=== PATIENT | male | born 1955 | race Caucasian/White ===

== ENCOUNTER 2019-06-10 04:35 | Emergency (ER) | payer MEDICARE, OTHER ==
[2019-06-10] MEDS ORDERED: Sodium Chloride 0.9% 1000 ML 1,000 ML IV STA ×2 (05:04→06:13)
--- NOTE | 2019-06-10 05:12 | ERPHSYRPT ---
- History of Present Illness Time Seen by Provider: 06/10/19 05:00 Source: patient Exam Limitations: no limitations Patient Subjective Stated Complaint: pt states he thinks he is dehydrated. states he was working outside yesterday. tonight he has shooting pains in the back of his neck radiating up to his head and generalized body aches. states he had fever and chills earlier in the night Triage Nursing Assessment: pt alert and oriented. asnwers questions approp. pt ambulatory iwht steady gait noted. respirations nonlabored with lungs cta. skin pink warm and dry. Physician History: Myalgias generalized with back in the back of his neck after breaking up concrete on 06/07/2019 and cutting down trees on 06/08/2019. Symptoms began at 11 :00 on 06/09/2019. He tried hydrating himself, but states the body aches have become too much and he has not really urinated since yesterday. He had some fever and chills in the evening of 06/09/2019. Timing/Duration: yesterday Severity: moderate Modifying Factors: Improves With: movement (worsens it), rest (no improvement) Associated Symptoms: chills, fever, No nausea, No vomiting, No abdominal pain, No shortness of breath, No heartburn, No diaphoresis, No cough, No chest pain, No headaches, No loss of appetite, No malaise, No rash, No syncope, No seizure, No weakness Allergies/Adverse Reactions: ezetimibe [From Vytorin] Adverse Reaction (Verified 06/10/19 04:51) Joint Aches simvastatin [From Vytorin] Adverse Reaction (Verified 06/10/19 04:51) Joint Aches Home Medications: Aspirin [Aspirin EC] 81 mg PO DAILY 05/26/14 [History] Clopidogrel Bisulfate 75 mg [PLAVIX 75 MG Tablet] 1 tab PO DAILY 05/26/14 [History] Lisinopril [Zestril] 40 mg PO DAILY 05/26/14 [History] [place]-3 Fatty Acids/Fish Oil [Fish Oil 1,000 mg Capsule] 2,000 mg PO DAILY 05/26/14 [History] Rosuvastatin Calcium [Crestor] 40 mg PO DAILY 05/26/14 [History] Gabapentin 300 mg PO BID 06/10/19 [History] PANTOPRAZOLE 40 mg Tablet [Protonix 40MG Tablet] 40 mg PO QAM 06/10/19 [ History] Hx Tetanus, Diphtheria Vaccination/Date Given: No Hx Influenza Vaccination/Date Given: No Hx Pneumococcal Vaccination/Date Given: No Immunizations Up to Date: No - Review of Systems Constitutional: Fever, Chills, No Fatigue Eyes: No Symptoms, No Eye Redness Ears, Nose, & Throat: No Symptoms, No Mouth Pain, No Hoarse, No Painful Swallowing Respiratory: No Cough, No Dyspnea Cardiac: No Chest Pain, No Edema, No Syncope Abdominal/Gastrointestinal: No Abdominal Pain, No Nausea, No Vomiting, No Diarrhea, No Hematemesis, No Hematochezia Genitourinary Symptoms: No Dysuria, No Hematuria, No Flank Pain Musculoskeletal: Back Pain, Neck Pain, Myalgias, No Injury Skin: No Rash Neurological: No Dizziness, No Focal Weakness, No Sensory Changes Psychological: No Symptoms Endocrine: No Symptoms, No Polydipsia, No Excessive Sweating Hematologic/Lymphatic: No Easy Bleeding, No Easy Bruising All Other Systems: Reviewed and Negative - Past Medical History Pertinent Past Medical History: Yes Neurological History: No Pertinent History ENT History: No Pertinent History Cardiac History: Arrhythmia, Coronary Artery Disease, High Cholesterol, Hypertension Respiratory History: No Pertinent History Endocrine Medical History: No Pertinent History Musculoskeletal History: Arthritis GI Medical History: GERD, Polyps History: Other Psycho-Social History: No Pertinent History Male Reproductive Disorders: No Pertinent History Other Medical History: 1 kidney stone. 4 heart stents - Past Surgical History Past Surgical History: Yes Neuro Surgical History: No Pertinent History Cardiac: Cardiac Catheterization, Cardiac Stent Respiratory: No Pertinent History Gastrointestinal: No Pertinent History Genitourinary: No Pertinent History Musculoskeletal: Orthopedic Surgery Male Surgical History: No Pertinent History Other Surgical History: left shoulder surgery - Social History Smoking Status: Never smoker Exposure to second hand smoke: No Drug Use: none Patient Lives Alone: No - Nursing Vital Signs Nursing Vital Signs: Initial Vital Signs Temperature 99.8 F 06/10/19 04:41 Pulse Rate 80 06/10/19 04:41 Respiratory Rate 18 06/10/19 04:41 Blood Pressure 126/72 06/10/19 04:41 O2 Sat by Pulse Oximetry 96 06/10/19 04:41 Pain Scale Pain Intensity 8 - Physical Exam General Appearance: no apparent distress, alert Eye Exam: PERRL/EOMI, eyes nml inspection, No scleral icterus Ears, Nose, Throat Exam: normal ENT inspection, TMs normal, pharynx normal, moist mucous membranes Neck Exam: normal inspection, non-tender, supple, full range of motion Respiratory Exam: normal breath sounds, lungs clear, No respiratory distress Cardiovascular Exam: regular rate/rhythm, normal heart sounds, normal peripheral pulses Gastrointestinal/Abdomen Exam: soft, normal bowel sounds, No tenderness, No mass Back Exam: normal inspection, normal range of motion, No CVA tenderness, No vertebral tenderness, No decreased range of motion, No muscle spasm Extremity Exam: normal inspection, normal range of motion, pelvis stable Neurologic Exam: alert, oriented x 3, cooperative, normal mood/affect, nml cerebellar function, nml station & gait, sensation nml, No motor deficits Skin Exam: normal color, warm, dry, No rash Lymphatic Exam: No adenopathy SpO2 Interpretation: normal SpO2: 96 O2 Delivery: Room Air - Course EKG Interpreted by Me: RATE (75), Sinus Rhythm, NORMAL AXIS, NORMAL INTERVALS, NORMAL QRS, NORMAL ST-T Ordered Tests: Active Orders 24 hr Category Date Time Status Community Marketing Coordinator STAT Care 06/10/19 05:04 Active EKG-ER Only STAT Care 06/10/19 05:04 Active IV Insertion STAT Care 06/10/19 05:04 Active Re-Check Vital Signs STAT Care 06/10/19 05:04 Active AMYLASE Stat Lab 06/10/19 05:19 Completed CBC W DIFF Stat Lab 06/10/19 05:19 Completed CK-Creatinine Phosphokinase Stat Lab 06/10/19 05:19 Completed CMP Stat Lab 06/10/19 05:19 Completed CULTURE,URINE Stat Lab 06/10/19 06:06 Received LIPASE Stat Lab 06/10/19 05:19 Completed Lactic Acid Urgent Lab 06/10/19 05:14 Completed MAGNESIUM Stat Lab 06/10/19 05:19 Completed TROPONIN Q3H Lab 06/10/19 05:19 Completed TROPONIN Q3H Lab 06/10/19 08:15 Ordered TROPONIN Q3H Lab 06/10/19 11:15 Ordered TROPONIN Q3H Lab 06/10/19 14:15 Ordered TROPONIN Q3H Lab 06/10/19 17:15 Ordered UA W/RFX UR CULTURE Stat Lab 06/10/19 06:06 Completed VENOUS BLOOD GAS Urgent Lab 06/10/19 05:14 Completed Medication Summary Generic Name Dose Route Start Last Admin Trade Name Shannan PRN Reason Stop Dose Admin Sodium Chloride 1,000 mls @ 999 mls/hr 06/10/19 06:13 06/10/19 06:16 Sodium Chloride 0.9% 1000 Ml IV 06/10/19 07:13 999 mls/hr .Q1H1M STA Administration Magnesium Oxide 400 mg 06/10/19 10:00 06/10/19 06:09 Mag-Ox 400 PO 07/10/19 09:59 400 mg DAILY NIKKI Administration Discontinued Medications Generic Name Dose Route Start Last Admin Trade Name Shannan PRN Reason Stop Dose Admin Sodium Chloride 1,000 mls @ 999 mls/hr 06/10/19 05:04 06/10/19 06:17 Sodium Chloride 0.9% 1000 Ml IV 06/10/19 06:04 Infused .Q1H1M STA Infusion Sodium Chloride Confirm 06/10/19 05:17 Sodium Chloride 0.9% 1000 Ml Administered 06/10/19 05:18 Dose 1,000 mls @ ud .ROUTE .STK-MED ONE Sodium Chloride Confirm 06/10/19 06:12 Sodium Chloride 0.9% 1000 Ml Administered 06/10/19 06:13 Dose 1,000 mls @ ud .ROUTE .STK-MED ONE Ceftriaxone Sodium/Dextrose 1 g in 50 mls @ 100 mls/hr 06/10/19 06:23 06:39 Rocephin 1 Gm-D5w 50 Ml Bag IV 06/10/19 06:52 100 ml/hr STAT STA 100 mls/hr Administration Ceftriaxone Sodium/Dextrose Confirm 06/10/19 06:35 Rocephin 1 Gm-D5w 50 Ml Bag Administered 06/10/19 06:36 Dose 1 g in 50 mls @ ud IV .STK-MED ONE Lab/Rad Data: Laboratory Result Diagrams 06/10/19 05:19 06/10/19 05:19 Laboratory Results 06/10/19 06/10/19 06/10/19 Range/Units 06:06 05:19 05:19 WBC (4.0-10.5) K/mm3 RBC (4.1-5.6) M/mm3 Hgb (12.5-18.0) gm/dl Hct (42-50) % MCV (78-100) fl MCH (26-32) pg MCHC (32-36) g/dl RDW (11.5-14.0) % Plt Count (150-450) K/mm3 MPV (6-9.5) fl Gran % (36.0-66.0) % Eos # (Auto) (0-0.5) Absolute Lymphs (auto) (1.0-4.6) Absolute Monos (auto) (0.0-1.3) Lymphocytes % (24.0-44.0) % Monocytes % (0.0-12.0) % Eosinophils % (0.00-5.0) % Basophils % (0.0-0.4) % Absolute Granulocytes (1.4-6.9) Basophils # (0-0.4) pO2/FiO2 Ratio % VBG pH (7.32-7.42) VBG pCO2 at Pat Temp (42-55) mm/Hg VBG pO2 at Pat Temp (25-40) mm/Hg VBG HCO3 (22-28) meq/L VBG O2 Sat ([place]) (95-100) VBG Base Excess (-2.0-2.0) VBG Hemoglobin VBG Carboxyhemoglobin (0.0-6.9) % T HGB POC Potassium (3.5-5.1) Sodium 138 (137-145) mmol/L Potassium 4.1 (3.5-5.1) mmol/L Chloride 104 (98-107) mmol/L Carbon Dioxide 26 (22-30) mmol/L Anion Gap 11.9 (5-15) MEQ/L BUN 11 (9-20) mg/dL Creatinine 0.79 (0.66-1.25) mg/dL Estimated GFR > 60.0 ML/MIN Glucose 181 H (74-106) mg/dL Lactic Acid (0.4-2.0) Calcium 9.7 (8.4-10.2) mg/dL Magnesium 1.5 L (1.6-2.3) mg/dL Total Bilirubin 2.60 H (0.2-1.3) mg/dL AST 23 (17-59) U/L ALT 27 (0-50) U/L Alkaline Phosphatase 62 (38-126) U/L Creatine Kinase 128 (55-170) U/L Troponin I < 0.012 (0.000-0.034) ng/mL Serum Total Protein 6.8 (6.3-8.2) g/dL Albumin 4.2 (3.5-5.0) g/dL Amylase 41 (30-110) U/L Lipase 28 (23-300) U/L Urine Color YELLOW (YELLOW) Urine Appearance SLIGHTLY CLOUDY (CLEAR) Urine pH 5.0 (5-6) Ur Specific [place] 1.020 (1.005-1.025) Urine Protein NEGATIVE (Negative) Urine Ketones NEGATIVE (NEGATIVE) Urine Blood MODERATE (0-5) [place] Urine Nitrite NEGATIVE (NEGATIVE) Urine Bilirubin NEGATIVE (NEGATIVE) Urine Urobilinogen NEGATIVE (0-1) mg/dL Ur Leukocyte Esterase LARGE (NEGATIVE) Urine WBC (Auto) >100 (0-5) /HPF Urine RBC (Auto) 6-10 (0-2) /HPF U Epithel Cells (Auto) NONE (FEW) /HPF Urine Bacteria (Auto) MODERATE (NEGATIVE) /HPF Urine Mucus (Auto) SLIGHT (NEGATIVE) /HPF Urine Culture Reflexed YES (NO) Urine Glucose 50 (NEGATIVE) mg/dL 06/10/19 06/10/19 Range/Units 05:19 05:14 WBC 8.7 (4.0-10.5) K/mm3 RBC 4.00 L (4.1-5.6) M/mm3 Hgb 12.2 L (12.5-18.0) gm/dl Hct 35.9 L (42-50) % MCV 89.8 (78-100) fl MCH 30.5 (26-32) pg MCHC 34.0 (32-36) g/dl RDW 12.9 (11.5-14.0) % Plt Count 164 (150-450) K/mm3 MPV 10.3 H (6-9.5) fl Gran % 77.9 H (36.0-66.0) % Eos # (Auto) 0.06 (0-0.5) Absolute Lymphs (auto) 1.17 (1.0-4.6) Absolute Monos (auto) 0.68 (0.0-1.3) Lymphocytes % 13.4 L (24.0-44.0) % Monocytes % 7.8 (0.0-12.0) % Eosinophils % 0.7 (0.00-5.0) % Basophils % 0.2 (0.0-0.4) % Absolute Granulocytes 6.77 (1.4-6.9) Basophils # 0.02 (0-0.4) pO2/FiO2 Ratio 21.0 % VBG pH 7.43 H (7.32-7.42) VBG pCO2 at Pat Temp 39 L (42-55) mm/Hg VBG pO2 at Pat Temp 48 H (25-40) mm/Hg VBG HCO3 25.9 (22-28) meq/L VBG O2 Sat ([place]) 89.8 L (95-100) VBG Base Excess 1.5 (-2.0-2.0) VBG Hemoglobin 12.3 VBG Carboxyhemoglobin 2.6 (0.0-6.9) % T HGB POC Potassium 3.9 (3.5-5.1) Sodium (137-145) mmol/L Potassium (3.5-5.1) mmol/L Chloride (98-107) mmol/L Carbon Dioxide (22-30) mmol/L Anion Gap (5-15) MEQ/L BUN (9-20) mg/dL Creatinine (0.66-1.25) mg/dL Estimated GFR ML/MIN Glucose (74-106) mg/dL Lactic Acid 1.4 (0.4-2.0) Calcium (8.4-10.2) mg/dL Magnesium (1.6-2.3) mg/dL Total Bilirubin (0.2-1.3) mg/dL AST (17-59) U/L ALT (0-50) U/L Alkaline Phosphatase (38-126) U/L Creatine Kinase (55-170) U/L Troponin I (0.000-0.034) ng/mL Serum Total Protein (6.3-8.2) g/dL Albumin (3.5-5.0) g/dL Amylase (30-110) U/L Lipase (23-300) U/L Urine Color (YELLOW) Urine Appearance (CLEAR) Urine pH (5-6) Ur Specific [place] (1.005-1.025) Urine Protein (Negative) Urine Ketones (NEGATIVE) Urine Blood (0-5) [place] Urine Nitrite (NEGATIVE) Urine Bilirubin (NEGATIVE) Urine Urobilinogen (0-1) mg/dL Ur Leukocyte Esterase (NEGATIVE) Urine WBC (Auto) (0-5) /HPF Urine RBC (Auto) (0-2) /HPF U Epithel Cells (Auto) (FEW) /HPF Urine Bacteria (Auto) (NEGATIVE) /HPF Urine Mucus (Auto) (NEGATIVE) /HPF Urine Culture Reflexed (NO) Urine Glucose (NEGATIVE) mg/dL - Progress Progress: improved Progress Note: 06/10/19 06:13 patient subjectively feels much better. He states that he has been told the past he has an elevated bilirubin. Patient would like one more liter of fluids. 06/10/19 06:59 Patient feeling better. No further fevers, chills, or pain at this time. Counseled pt/family regarding: lab results, diagnosis, need for follow-up - Departure Departure Disposition: Home Clinical Impression: Fever and chills, UTI (urinary tract infection), bacterial, Hypomagnesemia, Serum total bilirubin elevated Condition: Good Critical Care Time: No Referrals: MAR SHAW [Primary Care Provider] - Follow Up with PCP/3 days Instructions: Dehydration, Adult (DC), Urinary Tract Infection, Adult (DC), Fever, Adult (DC), Low Magnesium Level (DC) Prescriptions: Smz/Tmp Ds Tablet [Bactrim Ds Tablet] 1 tab PO Q12H #20 tablet
[2019-06-10] MEDS ORDERED: Sodium Chloride 0.9% 1000 ML 1,000 ML ONE ×2 (05:17→06:12)
[2019-06-10 05:20] LABS: Lactic Acid 1.4 (0.4-2.0); VBG BASE EXCESS 1.5 (-2.0-2.0); VBG CARBOXYHEMOGLOBIN 2.6 % T HGB (0.0-6.9); VBG HCO3- 25.9 meq/L (22-28); VBG HEMOGLOBIN 12.3; VBG O2 SATURATION 89.8 (95-100); VBG POTASSIUM 3.9 (3.5-5.1); VBG pH 7.43 (7.32-7.42)
[2019-06-10 05:23] LABS: BASOPHIL % 0.2 % (0.0-0.4); Basophil (Absolute #) 0.02 (0-0.4); Eosinophil % 0.7 % (0.00-5.0); Eosinophil (Absolute #) 0.06 (0-0.5); Granulocyte Absolute (ANC) 6.77 (1.4-6.9); Granulocytes % 77.9 % (36.0-66.0); Hematocrit 35.9 % (42-50); Hemoglobin 12.2 gm/dl (12.5-18.0); Lymphocyte (Absolute #) 1.17 (1.0-4.6); Lymphocytes % 13.4 % (24.0-44.0); Mean Cell Volume 89.8 fl (78-100); Mean Corpuscular Hemoglobin 30.5 pg (26-32); Mean Platelet Volume 10.3 fl (6-9.5); Monocyte (Absolute #) 0.68 (0.0-1.3); Monocytes % 7.8 % (0.0-12.0); Platelet Count 164 K/mm3 (150-450); Red Cell Distribution Width 12.9 % (11.5-14.0); White Blood Count 8.7 K/mm3 (4.0-10.5)
[2019-06-10 05:34] LABS: ALBUMIN 4.2 g/dL (3.5-5.0); ALKALINE PHOSPHATASE 62 U/L (38-126); AMYLASE 41 U/L (30-110); ANION GAP 11.9 MEQ/L (5-15); BLOOD UREA NITROGEN 11 mg/dL (9-20); CHLORIDE 104 mmol/L (98-107); CK-Creatinine Phosphokinase 128 U/L (55-170); Calcium 9.7 mg/dL (8.4-10.2); Carbon Dioxide 26 mmol/L (22-30); Creatinine 1 0.79 mg/dL (0.66-1.25); Glucose 181 mg/dL (74-106); LIPASE 28 U/L (23-300); MAGNESIUM 1.5 mg/dL (1.6-2.3); Potassium 4.1 mmol/L (3.5-5.1); SGOT/AST 23 U/L (17-59); SGPT/ALT 27 U/L (0-50); SODIUM 138 mmol/L (137-145); Total Protein 6.8 g/dL (6.3-8.2)
[2019-06-10] MEDS ORDERED: MAG-OX 400 ONE (06:09)
[2019-06-10 06:15] VITALS: O2SAT 96
[2019-06-10 06:21] LABS: Appearance SLIGHTLY CLOUDY (CLEAR); Bacteria MODERATE /HPF (NEGATIVE); Bilirubin NEGATIVE (NEGATIVE); Blood MODERATE Ery/ul (0-5); Glucose 50 mg/dL (NEGATIVE); Ketones NEGATIVE (NEGATIVE); Leukocyte Esterase LARGE (NEGATIVE); Mucus SLIGHT /HPF (NEGATIVE); Nitrite NEGATIVE (NEGATIVE); Protein,Urine Dip NEGATIVE (Negative); Urobilinogen NEGATIVE mg/dL (0-1); WBC >100 /HPF (0-5)
[2019-06-10] MEDS ORDERED: ROCEPHIN 1 Gm-D5w 50 ml Bag** 1 G/50 ML IVPB IV STA (06:23)
[2019-06-10] MEDS ORDERED: ROCEPHIN 1 Gm-D5w 50 ml Bag** 1 G/50 ML IVPB IV ONE (06:35)
[2019-06-10 07:06] VITALS: BP 112/63; PULSE 71
[2019-06-10] MEDS ORDERED: MAG-OX 400 PO SCH (10:00)
== END 2019-06-10 07:11 | disposition home or self-care (01) ==
LOC: ED 04:35
DX: R50.9 Fever, unspecified (principal); N39.0 Urinary tract infection, site not specified; B96.89 Other specified bacterial agents as the cause of diseases classified elsewhere; E83.42 Hypomagnesemia; E80.7 Disorder of bilirubin metabolism, unspecified
CPT/HCPCS: 36000; 36415; 80053; 81001; 82150; 82550; 82805; 83605; 83690; 83735; 84484; 85025; 87077; 87086; 87186; 93005; 93041; 96360; 96361; 96365; 99284; J0696; A9270-GY

== ENCOUNTER 2022-03-26 03:20 | Emergency (ER) | payer MEDICARE, OTHER ==
[2022-03-26] MEDS ORDERED: TORAdol 30 mg Injection IM ONE (03:37)
[2022-03-26] MEDS ORDERED: TORAdol 30 mg Injection ONE (03:38)
[2022-03-26] MEDS ORDERED: TYLENOL 325 MG PO ONE (04:08)
--- NOTE | 2022-03-26 04:15 | ERPHSYRPT ---
- History of Present Illness Time Seen by Provider: 03/26/22 03:30 Source: patient Exam Limitations: no limitations Patient Subjective Stated Complaint: headache in back of his head, feels dehydrated Triage Nursing Assessment: pt came back from a golfing trip 5 days ago and has had a headache off and on ever since. Pain is in the back of his head, a shooting like pain. Pt states, "I think I'm dehydrated, this happened to me in January in [place] and I felt the same way". Pt alert and oriented x4. Physician History: Patient is a 66-year-old male presents to emergency department for evaluation of a headache. Headache described as a shooting sensation that occurs at the base of his neck up towards the back of his head. Patient states he had similar symptoms back in January when he was in [place] [employer]. Patient was evaluated at that time. Patient states that he was dehydrated. Patient was treated for dehydration and symptoms resolved. Patient returned from [place] on a golfing trip 5 days ago. Patient states his symptoms started shortly after returning home. Patient is unsure if he is dehydrated however he feels as though he is. Patient has been drinking approximately a gallon of water per day. No trauma no fever. No numbness tingling or weakness. No change in vision. No neck pain. Cervical spine cleared clinically. Patient has no neurologic symptomology. Patient's headache is intermittent similar to a spasm. Patient states that it is causing difficulty sleeping. No chest pain or shortness of breath. No nausea vomiting or diaphoresis. Patient voices no other complaints or concerns at this time. Timing/Duration: day(s) (4 to 5 days) Quality: other (Intermittent shooting sensation from the base of his neck to the back of his head) Head Pain Location: occipital Severity of Pain-Max: moderate Severity of Pain-Current: none Recent Head Trauma: frequent headaches Associated Symptoms: denies symptoms, No dizziness, No facial pain, No fever/chills, No light-headedness, No loss of consciousness, No nausea/vomiting, No nasal congestion, No nasal drainage, No numbness in legs/feet, No sensitive to light, No speech problems, No stiff neck, No trouble walking, No vision changes, No visual disturbance, No weakness Previous symptoms: same symptoms as today Allergies/Adverse Reactions: ezetimibe [From Vytorin] Adverse Reaction (Verified 03/26/22 03:32) Joint Aches simvastatin [From Vytorin] Adverse Reaction (Verified 03/26/22 03:32) Joint Aches Home Medications: Aspirin [Aspirin EC] 81 mg PO DAILY 05/26/14 [History] Clopidogrel Bisulfate [PLAVIX 75 MG Tablet] 1 tab PO DAILY 05/26/14 [History] Lisinopril [Zestril] 40 mg PO DAILY 05/26/14 [History] [place]-3 Fatty Acids/Fish Oil [Fish Oil 1,000 mg Capsule] 2,000 mg PO DAILY 05/26/14 [History] Rosuvastatin Calcium [Crestor] 40 mg PO DAILY 05/26/14 [History] Gabapentin 300 mg PO BID 06/10/19 [History] PANTOPRAZOLE 40 mg Tablet [Protonix 40MG Tablet] 40 mg PO QAM 06/10/19 [History] Hx Tetanus, Diphtheria Vaccination/Date Given: Yes Hx Influenza Vaccination/Date Given: No Hx Pneumococcal Vaccination/Date Given: No Immunizations Up to Date: Yes Travel Risk - International Travel Have you traveled outside of the country in past 3 weeks: No - Coronavirus Screening Are you exhibiting any of the following symptoms?: Yes Symptoms: Headaches/Body Aches/Fatigue Close contact with a COVID-19 positive Pt in past 14-21 Days: No - Vaccine Status Have you recieved a Covid-19 vaccination: Yes Photo Checker: Moderna - Vaccination Dates Date of 2cond Vaccination (if applicable): . - Review of Systems Constitutional: No Symptoms, No Fever, No Chills Eyes: No Symptoms Ears, Nose, & Throat: No Symptoms Respiratory: No Symptoms, No Cough, No Dyspnea Cardiac: No Symptoms, No Chest Pain, No Edema, No Syncope Abdominal/Gastrointestinal: No Symptoms, No Abdominal Pain, No Nausea, No Vomiting, No Diarrhea Genitourinary Symptoms: No Symptoms, No Dysuria Musculoskeletal: No Symptoms, No Back Pain, No Neck Pain Skin: No Symptoms, No Rash Neurological: No Symptoms, No Dizziness, No Focal Weakness, No Sensory Changes Psychological: No Symptoms Endocrine: No Symptoms Hematologic/Lymphatic: No Symptoms Immunological/Allergic: No Symptoms All Other Systems: Reviewed and Negative - Past Medical History Pertinent Past Medical History: Yes Neurological History: No Pertinent History ENT History: No Pertinent History Cardiac History: Arrhythmia, Coronary Artery Disease, High Cholesterol, Hyperten alexis Respiratory History: No Pertinent History Endocrine Medical History: No Pertinent History Musculoskeletal History: Arthritis GI Medical History: GERD, Polyps History: Other Psycho-Social History: No Pertinent History Male Reproductive Disorders: No Pertinent History Other Medical History: 1 kidney stone. 4 heart stents - Past Surgical History Past Surgical History: Yes Neuro Surgical History: No Pertinent History Cardiac: Cardiac Catheterization, Cardiac Stent Respiratory: No Pertinent History Gastrointestinal: No Pertinent History Genitourinary: No Pertinent History Musculoskeletal: Orthopedic Surgery Male Surgical History: No Pertinent History Other Surgical History: left shoulder surgery - Social History Smoking Status: Never smoker Exposure to second hand smoke: No Drug Use: none Patient Lives Alone: No - Nursing Vital Signs Nursing Vital Signs: Initial Vital Signs Temperature 96.5 F 03/26/22 03:21 Pulse Rate 61 03/26/22 03:21 Respiratory Rate 16 03/26/22 03:21 Blood Pressure 144/77 03/26/22 03:21 O2 Sat by Pulse Oximetry 98 03/26/22 03:21 Pain Scale Pain Intensity 8 - Physical Exam General Appearance: no apparent distress Eye Exam: PERRL/EOMI, eyes nml inspection, other (Bilateral pterygiums) Ears, Nose, Throat Exam: normal ENT inspection, TMs normal, pharynx normal, moist mucous membranes Neck Exam: normal inspection, supple, full range of motion, No meningismus Respiratory Exam: normal breath sounds, lungs clear, airway intact, No chest tenderness, No respiratory distress Cardiovascular Exam: regular rate/rhythm, normal heart sounds, normal peripheral pulses Gastrointestinal/Abdominal Exam: soft, normal bowel sounds, No tenderness, No distention, No guarding Back Exam: normal inspection, normal range of motion Extremity Exam: normal inspection, normal range of motion Mental Status Exam: alert, oriented x 3, cooperative senior business process analyst Exam: normal hearing, normal speech, PERRL, No abnormal eye position, No facial droop Coordination/Gait Exam: normal finger to nose, normal gait, normal cerebellar function Motor/Sensory Exam: no motor deficit, no sensory deficit Skin Exam: normal color, warm, dry, No rash Lymphatic Exam: No adenopathy SpO2 Interpretation: normal SpO2: 97 O2 Delivery: Room Air - Course Nursing assessment & vital signs reviewed: Yes - CT Exams Head CT Interpretation: Tele-radiologist Report (Normal brain no ventriculomegaly. Minimal ethmoid and bilateral maxillary sinus disease normal mastoid air cells atherosclerotic vascular disease) Ordered Tests: Active Orders 24 hr Category Date Time Status IV Insertion STAT Care 03/26/22 04:33 Active HEAD WITHOUT CONTRAST [CT] Stat Exams 03/26/22 03:36 Taken UA W/RFX CULTURE Stat Lab 03/26/22 04:11 Completed Medication Summary Generic Name Dose Route Start Last Admin Trade Name Freq PRN Reason Stop Dose Admin Sodium Chloride 1,000 mls @ 999 mls/hr 03/26/22 04:32 03/26/22 04:36 Sodium Chloride 0.9% 1000 Ml IV 03/26/22 05:32 999 mls/hr .Q1H1M STA Administration Discontinued Medications Generic Name Dose Route Start Last Admin Trade Name Freq PRN Reason Stop Dose Admin Acetaminophen 975 mg 03/26/22 04:08 03/26/22 04:16 Acetaminophen 325 Mg Tablet PO 03/26/22 04:09 975 mg STAT ONE Administration Acetaminophen Confirm 03/26/22 04:16 Acetaminophen 325 Mg Tablet Administered 03/26/22 04:17 Dose 975 mg .ROUTE .STK-MED ONE Sodium Chloride Confirm 03/26/22 04:35 Sodium Chloride 0.9% 1000 Ml Administered 03/26/22 04:36 Dose 1,000 mls @ ud .ROUTE .STK-MED ONE Ketorolac Tromethamine 30 mg 03/26/22 03:37 03/26/22 03:39 Ketorolac Tromethamine 30 Mg/Ml Inj IM 03/26/22 03:38 30 mg STAT ONE Administration Ketorolac Tromethamine Confirm 03/26/22 03:38 Ketorolac Tromethamine 30 Mg/Ml Inj Administered 03/26/22 03:39 Dose 30 mg .ROUTE .STK-MED ONE Lab/Rad Data: Laboratory Results 03/26/22 Range/Units 04:11 Urinalys Dipstick Clnc MAIN LAB Urine Color YELLOW (YELLOW) Urine Appearance CLEAR (CLEAR) Urine pH 5.5 (5-6) Ur Specific [place] >=1.030 (1.005-1.025) POC Urine Protein Conf NEGATIVE (Negative) Urine Ketones NEGATIVE (NEGATIVE) Urine Nitrite NEGATIVE (NEGATIVE) Urine Bilirubin NEGATIVE (NEGATIVE) Urine Urobilinogen 0.2 (0-1) mg/dL Urine Leukocytes NEGATIVE (NEGATIVE) Urine WBC (Auto) 0-2 (0-5) /HPF Urine RBC (Auto) NONE (0-2) /HPF U Epithel Cells (Auto) NONE (FEW) /HPF Urine Bacteria (Auto) NONE (NEGATIVE) /HPF Urine RBC NEGATIVE (0-5) [place] Urine Mucus (Auto) SLIGHT (NEGATIVE) /HPF Ur Culture Indicated? NO Urine Glucose NEGATIVE (NEGATIVE) mg/dL - Progress Progress: improved Air Movement: good Progress Note: Patient reassessed. Headache resolved. CT head negative for acute intracranial pathology. Minimal ethmoid and bilateral maxillary sinus disease observed. Urinalysis reveals an elevated specific gravity which indicates dehydration. IV fluids administered. Patient feels well. He voices no other complaints or concerns at this time. Patient states he is ready for discharge. Will discharge home. Patient agrees to follow-up with primary care doctor within 48 hours for evaluation. Portions of this note were created with voice recognition technology. There may be grammatical, spelling, punctuation or sound alike errors 03/26/22 04:40 03/26/22 04:41 Blood Culture(s) Obtained: No Antibiotics given: No Counseled pt/family regarding: lab results, diagnosis, need for follow-up - Departure Departure Disposition: Home Clinical Impression: Atherosclerotic vascular disease, Headache, Dehydration, Bilateral maxillary sinus disease Condition: Stable Critical Care Time: No Referrals: MAR SHAW [Primary Care Provider] - Follow up/PCP as directed Additional Instructions: Discharge/Care Plan ASHLEY CABRERA was seen on 03/26/22 in the Emergency Room. The patient was counseled regarding Diagnosis,Lab results, Imaging studies, need for follow up and when to return to the Emergency Room. Prescriptions given: Discharge Note I have spoken with the patient and/or caregivers. I have explained the patient's condition, diagnosis and treatment plan based on the information available to me at this time. I have answered the patient's and/or caregiver's questions and addressed any concerns. The patient and/or caregivers have as good understanding of the patient's diagnosis, condition and treatment plan as can be expected at this point. The vital signs have been stable. The patient's condition is stable and appropriate for discharge from the emergency department. The patient will pursue further outpatient evaluation with the primary care physician or other designated or consulting physician as outlined in the discharge instructions. The patient and/or caregivers are agreeable to this plan of care and follow-up instructions have been explained in detail. The patient and/or caregivers have received these instruction. The patient/and or caregivers are aware that any significant change in condition or worsening of symptoms should prompt an immediate return to this or the closest emergency department or call 911.
[2022-03-26] MEDS ORDERED: TYLENOL 325 MG ONE (04:16)
[2022-03-26 04:25] LABS: Mucus SLIGHT /HPF (NEGATIVE); WBC 0-2 /HPF (0-5)
[2022-03-26 04:26] LABS: Appearance CLEAR (CLEAR); Bilirubin NEGATIVE (NEGATIVE); Glucose NEGATIVE (NEGATIVE); Ketones NEGATIVE (NEGATIVE); Ph 5.5 (5-6); Protein,Urine Dip NEGATIVE (Negative); RBC NEGATIVE Ery/ul (0-5); Specific Gravity >=1.030 (1.005-1.025); Urobilinogen 0.2 mg/dL (0-1)
[2022-03-26 04:27] LABS: Dipstick done @ ? MAIN LAB; Nitrite NEGATIVE (NEGATIVE); Urine Cultured Indicated? NO
[2022-03-26] MEDS ORDERED: Sodium Chloride 0.9% 1000 ML 1,000 ML IV STA (04:32)
[2022-03-26] MEDS ORDERED: Sodium Chloride 0.9% 1000 ML 1,000 ML ONE (04:35)
[2022-03-26 05:40] VITALS: BP 130/69; PULSE 53; O2SAT 97
--- NOTE | 2022-03-26 09:00 | XRAY ---
Indication: Headache 5 days. Stroke. Multiple contiguous axial images obtained through the head without contrast. Comparison: None Normal appearing brain parenchyma, ventricles, and bony calvarium for patient's age. Minimal mucosal thickening right maxillary sinus. Remaining visualized paranasal sinuses and mastoid air cells are clear. Impression: Normal CT head without contrast exam. Minimal right maxillary sinus disease. Comment: Preliminary interpretation made by [facility]. No critical discrepancy.
== END 2022-03-26 05:47 | disposition home or self-care (01) ==
LOC: ED 03:20
DX: I70.90 Unspecified atherosclerosis (principal); R51.9 Headache, unspecified; E86.0 Dehydration; J32.0 Chronic maxillary sinusitis; E78.5 Hyperlipidemia, unspecified; I10 Essential (primary) hypertension; Z79.02 Long term (current) use of antithrombotics/antiplatelets; Z79.899 Other long term (current) drug therapy
CPT/HCPCS: 36000; 70450; 81015; 96360; 96372; 99284; J1885; A9270-GY

== ENCOUNTER 2024-04-15 08:07 | Emergency (ER) | payer MEDICARE, OTHER ==
[2024-04-15 08:54] VITALS: TEMP 98.1; O2SAT 97
--- NOTE | 2024-04-15 09:00 | ERPHSYRPT ---
- History of Present Illness Time Seen by Provider: 04/15/24 08:50 Source: patient Exam Limitations: no limitations Patient Subjective Stated Complaint: C/O vomiting that started yesterday am. Indicates he is not nauseated at this time but is afraid he may be dehydrated fr om the vomiting yesterday. Triage Nursing Assessment: Patient ambulated back to ER. He is alert and oriented. No SOB. No cough. LARA WNL. Physician History: 69yo m presents via private vehicle for vomiting, diarrhea, weaknes x 2d following multiple stings by yellow jackets, reportedly > 10 stings. Pt states he was stung on his head, back and hands, no obvious lesions visible today, states the areas are still itchy. Pt reports he started feeling poorly roughly 3-4h after the stings, reports he vomited all day yesterday, states he has tolerated some PO intake this AM but did not have any yesterday. Pt currently denies cp, soa, n/v/abdominal pain. Pt denies any swelling of the eyes, throat, or difficulty swallowing. Timing/Duration: day(s) (2) Quality: itchy Severity: moderate Location: scalp, torso, hands Possible Causes: insect sting Associated Symptoms: malaise, No difficulty breathing, No edema, No fever, No numbness, No sore throat, No swelling/mass/lumps, No tingling Allergies/Adverse Reactions: ezetimibe [From Vytorin] Adverse Reaction (Verified 04/15/24 08:45) Joint Aches simvastatin [From Vytorin] Adverse Reaction (Verified 04/15/24 08:45) Joint Aches Home Medications: Aspirin [Aspirin EC] 81 mg PO DAILY 05/26/14 [History] Lisinopril [Zestril] 40 mg PO DAILY 05/26/14 [History] [place]-3 Fatty Acids/Fish Oil [Fish Oil 1,000 mg Capsule] 2,000 mg PO DAILY 05/26/14 [History] Rosuvastatin Calcium [Crestor] 40 mg PO DAILY 05/26/14 [History] PANTOPRAZOLE 40 mg Tablet [Protonix 40MG Tablet] 40 mg PO QAM 06/10/19 [History] Hx Tetanus, Diphtheria Vaccination/Date Given: Yes Hx Influenza Vaccination/Date Given: Yes Hx Pneumococcal Vaccination/Date Given: No (unsure) Immunizations Up to Date: Yes Travel Risk - International Travel Have you traveled outside of the country in past 3 weeks: No - Emerging Infectious Disease Are you exhibiting symptoms associated with any current EIDs: Yes Symptoms: Diarrhea, Vomitting - Review of Systems Constitutional: Malaise, No Fever, No Chills Respiratory: No Symptoms Cardiac: No Symptoms Abdominal/Gastrointestinal: Nausea, Vomiting, Diarrhea Skin: Pruritis Neurological: No Symptoms - Past Medical History Pertinent Past Medical History: Yes Neurological History: No Pertinent History ENT History: No Pertinent History Cardiac History: Arrhythmia, Coronary Artery Disease, High Cholesterol, Hypertension Respiratory History: No Pertinent History Endocrine Medical History: No Pertinent History Musculoskeletal History: Arthritis GI Medical History: GERD, Polyps History: Other Psycho-Social History: No Pertinent History Male Reproductive Disorders: No Pertinent History 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, kidney stone - Past Surgical History Past Surgical History: Yes Neuro Surgical History: No Pertinent History Cardiac: Cardiac Catheterization, Cardiac Stent Respiratory: No Pertinent History Gastrointestinal: No Pertinent History Genitourinary: No Pertinent History Musculoskeletal: Orthopedic Surgery Male Surgical History: No Pertinent History Other Surgical History: left shoulder surgery - Social History Smoking Status: Never smoker Exposure to second hand smoke: No Drug Use: none Patient Lives Alone: No - Social Determinants of Health Will the patient participate in the screening: Yes Do you worry about a steady place to live?: No Do you have any problems with any of the following?: No known problems In the past 12 months,have you had to go without utilities?: No Transportation Issues: No Has anyone in your support network made you feel unsafe?: No Have you or anyone in your house had to go without enough: No - Nursing Vital Signs Nursing Vital Signs: Initial Vital Signs Temperature 98.1 F 04/15/24 08:40 Pulse Rate 84 04/15/24 08:40 Respiratory Rate 17 04/15/24 08:40 Blood Pressure 158/93 04/15/24 08:40 O2 Sat by Pulse Oximetry 97 04/15/24 08:40 Pain Scale Pain Intensity 0 - Physical Exam General Appearance: no apparent distress, alert Eye Exam: PERRL/EOMI, eyes nml inspection Ears, Nose, Throat Exam: normal ENT inspection Neck Exam: normal inspection Respiratory Exam: normal breath sounds, lungs clear, airway intact, No chest tenderness, No respiratory distress Cardiovascular Exam: regular rate/rhythm, normal heart sounds, normal peripheral pulses Gastrointestinal/Abdomen Exam: soft, normal bowel sounds, No tenderness, No dist ention Skin Exam: other (small round areas of erythema located on dorsal hands b/l, upper back, forehead) SpO2 Interpretation: normal SpO2: 97 O2 Delivery: Room Air - Course EKG Interpreted by Me: RATE (82), Sinus Rhythm (pr 140, qtcb 397, not suggestive of acute ischemia) Ordered Tests: Active Orders 24 hr Category Date Time Status EKG-ER Only STAT Care 04/15/24 09:00 Active IV Insertion STAT Care 04/15/24 09:00 Active CBC W DIFF Stat Lab 04/15/24 09:00 Completed CMP Stat Lab 04/15/24 09:00 Completed PROTIME WITH INR Stat Lab 04/15/24 09:00 Completed PTT Stat Lab 04/15/24 09:00 Completed Medication Summary Discontinued Medications Generic Name Dose Route Start Last Admin Trade Name Freq PRN Reason Stop Dose Admin Sodium Chloride 1,000 mls @ 999 mls/hr 04/15/24 09:00 04/15/24 09:05 Sodium Chloride 0.9% 1000 Ml IV 04/15/24 10:00 999 mls/hr .Q1H1M STA Administration Sodium Chloride Confirm 04/15/24 09:04 Sodium Chloride 0.9% 1000 Ml Administered 04/15/24 09:05 Dose 1,000 mls @ ud .ROUTE .STK-MED ONE Lab/Rad Data: Laboratory Result Diagrams 04/15/24 09:00 04/15/24 09:00 Laboratory Results 04/15/24 04/15/24 04/15/24 Range/Units 09:10 09:00 09:00 WBC (4.23-9.07) x10^3/uL RBC (4.63-6.08) x10^6/uL Hgb (13.7-17.5) g/dL Hct (40.1-51.0) % MCV (79.0-92.2) fL MCH (25.7-32.2) pg MCHC (32.3-36.5) g/dL RDW (11.6-14.4) % Plt Count (163-337) x10^3/uL MPV (9.4-12.4) fL Gran % (34.0-67.9) % Immature Gran % (Auto) (0.001-0.429) % Nucleat RBC Rel Count (0.00-0.2) % Eos # (Auto) (0.04-0.54) x10^3/uL Immature Gran # (Auto) (0.001-0.031) x10^3u/L Absolute Lymphs (auto) (1.32-3.57) x10^3/uL Absolute Monos (auto) (0.30-0.82) x10^3/uL Absolute Nucleated RBC (0.00-0.012) x10^3u/L Lymphocytes % (21.8-53.1) % Monocytes % (5.3-12.2) % Eosinophils % (0.8-7.0) % Basophils % (0.2-1.2) % Absolute Granulocytes (1.78-5.38) x10^3/uL Basophils # (0.01-0.08) x10^3/uL PT 11.4 (9.4-12.5) SECONDS INR 1.05 (0.8-3.0) APTT 25.6 (25.1-36.5) SECONDS Sodium 133 L (135-145) mmol/L Potassium 4.4 (3.5-5.1) mmol/L Chloride 99 (98-107) mmol/L Carbon Dioxide 24 (22-30) mmol/L Anion Gap 14.6 (5-15) MEQ/L BUN 24 H (9-20) mg/dL Creatinine 0.76 (0.66-1.25) mg/dL Estimated GFR 96.7 ML/MIN Glucose 249 H (74-106) mg/dL Calcium 9.6 (8.4-10.2) mg/dL Total Bilirubin 2.70 H (0.2-1.3) mg/dL AST 76 H (17-59) U/L ALT 65 H (0-50) U/L Alkaline Phosphatase 83 (38-126) U/L Serum Total Protein 7.0 (6.3-8.2) g/dL Albumin 4.5 (3.5-5.0) g/dL Influenza Type A Ag NEGATIVE (NEGATIVE) Influenza Type B Ag NEGATIVE (NEGATIVE) RSV (PCR) NEGATIVE (NEGATIVE) SARS-CoV-2 (PCR) NEGATIVE (NEGATIVE) 04/15/24 Range/Units 09:00 WBC 6.7 (4.23-9.07) x10^3/uL RBC 4.93 (4.63-6.08) x10^6/uL Hgb 14.8 (13.7-17.5) g/dL Hct 43.2 (40.1-51.0) % MCV 87.6 (79.0-92.2) fL MCH 30.0 (25.7-32.2) pg MCHC 34.3 (32.3-36.5) g/dL RDW 12.7 (11.6-14.4) % Plt Count 208 (163-337) x10^3/uL MPV 10.7 (9.4-12.4) fL Gran % 70.9 H (34.0-67.9) % Immature Gran % (Auto) 0.3 (0.001-0.429) % Nucleat RBC Rel Count 0.0 (0.00-0.2) % Eos # (Auto) 0.05 (0.04-0.54) x10^3/uL Immature Gran # (Auto) 0.02 (0.001-0.031) x10^3u/L Absolute Lymphs (auto) 1.33 (1.32-3.57) x10^3/uL Absolute Monos (auto) 0.56 (0.30-0.82) x10^3/uL Absolute Nucleated RBC 0.00 (0.00-0.012) x10^3u/L Lymphocytes % 19.7 L (21.8-53.1) % Monocytes % 8.3 (5.3-12.2) % Eosinophils % 0.7 L (0.8-7.0) % Basophils % 0.1 L (0.2-1.2) % Absolute Granulocytes 4.77 (1.78-5.38) x10^3/uL Basophils # 0.01 (0.01-0.08) x10^3/uL PT (9.4-12.5) SECONDS INR (0.8-3.0) APTT (25.1-36.5) SECONDS Sodium (135-145) mmol/L Potassium (3.5-5.1) mmol/L Chloride (98-107) mmol/L Carbon Dioxide (22-30) mmol/L Anion Gap (5-15) MEQ/L BUN (9-20) mg/dL Creatinine (0.66-1.25) mg/dL Estimated GFR ML/MIN Glucose (74-106) mg/dL Calcium (8.4-10.2) mg/dL Total Bilirubin (0.2-1.3) mg/dL AST (17-59) U/L ALT (0-50) U/L Alkaline Phosphatase (38-126) U/L Serum Total Protein (6.3-8.2) g/dL Albumin (3.5-5.0) g/dL Influenza Type A Ag (NEGATIVE) Influenza Type B Ag (NEGATIVE) RSV (PCR) (NEGATIVE) SARS-CoV-2 (PCR) (NEGATIVE) - Progress Progress: improved Progress Note: 04/15/24 09:56 pt reports feeling significant improvement after IV fluids, reports significant improvement in discomfort and fatigue Na mildly decreased at 133 - given NS bolus liver enzymes and bilirubin mildly elevated - discussed w/ pt and recommend outpatient f/u, unlikely to be sequelae of insect sting plan for dc home w/ PCP f/u this week - Dr Castro instructed to promote oral hydration w/ clear liquids and electrolyte containing fluids may use benadryl for skin itching and discomfort return to ED if: develop swelling of neck/throat/face, develop shortness of breath, develop significant headache or vision changes, develop significant fat igue/weakness Medical Desision Making - Diagnostic Testing Diagnostic test were ordered, analyzed, and reviewed by me: No - Risk of complications Minimal Risk: Minimal risk of morbidity - Departure Departure Disposition: Home Clinical Impression: Elevated liver enzymes Insect stings Qualifiers: Encounter type: initial encounter Injury intent: accidental or unintentional Qualified Code(s): T63.481A - Toxic effect of venom of other arthropod, accidental (unintentional), initial encounter Condition: Stable Critical Care Time: No Referrals: MAR CASTRO [Primary Care Provider] - Follow up/PCP as directed Additional Instructions: plan for dc home w/ PCP f/u this week - Dr Castro instructed to promote oral hydration w/ clear liquids and electrolyte containing fluids may use benadryl for skin itching and discomfort return to ED if: develop swelling of neck/throat/face, develop shortness of breath, develop significant headache or vision changes, develop significant fatigue/weakness
[2024-04-15] MEDS ORDERED: Sodium Chloride 0.9% 1000 ML 1,000 ML ONE (09:04)
[2024-04-15] MEDS: Sodium Chloride 0.9% 1000 ML 1,000 ML IV STA (09:05)
[2024-04-15 09:11] LABS: Absolute Neutrophil Ct (ANC) 4.77 x10^3/uL (1.78-5.38); BASOPHIL % 0.1 % (0.2-1.2); Basophil (Absolute #) 0.01 x10^3/uL (0.01-0.08); Eosinophil % 0.7 % (0.8-7.0); Eosinophil (Absolute #) 0.05 x10^3/uL (0.04-0.54); Hematocrit 43.2 % (40.1-51.0); Hemoglobin 14.8 g/dL (13.7-17.5); IMMATURE GRAN # 0.02 x10^3u/L (0.001-0.031); IMMATURE GRAN % 0.3 % (0.001-0.429); Lymphocyte (Absolute #) 1.33 x10^3/uL (1.32-3.57); Lymphocytes % 19.7 % (21.8-53.1); Mean Cell Volume 87.6 fL (79.0-92.2); Mean Corpuscular Hgb Concent. 34.3 g/dL (32.3-36.5); Mean Platelet Volume 10.7 fL (9.4-12.4); Monocyte (Absolute #) 0.56 x10^3/uL (0.30-0.82); Monocytes % 8.3 % (5.3-12.2); Neutrophil % 70.9 % (34.0-67.9); Platelet Count 208 x10^3/uL (163-337); Red Blood Count 4.93 x10^6/uL (4.63-6.08); Red Cell Distribution Width 12.7 % (11.6-14.4); White Blood Count 6.7 x10^3/uL (4.23-9.07)
[2024-04-15 09:25] LABS: ALBUMIN 4.5 g/dL (3.5-5.0); ANION GAP 14.6 MEQ/L (5-15); BILIRUBIN,TOTAL 2.7 mg/dL (0.2-1.3); Calcium 9.6 mg/dL (8.4-10.2); Creatinine 1 0.76 mg/dL (0.66-1.25); EST GLOMERULAR FILTRATION RATE 96.7 ML/MIN; Potassium 4.4 mmol/L (3.5-5.1)
[2024-04-15 09:27] LABS: INR 1.05 (0.8-3.0); PROTIME 11.4 SECONDS (9.4-12.5); PTT 25.6 SECONDS (25.1-36.5)
[2024-04-15 09:49] LABS: INFLUENZA A NEGATIVE (NEGATIVE); INFLUENZA B NEGATIVE (NEGATIVE); RESPIRATORY SYNCTIAL VIRUS NEGATIVE (NEGATIVE); SARS-CoV-2 Xpert Express NEGATIVE (NEGATIVE)
[2024-04-15 10:03] VITALS: BP 122/75; PULSE 74; RESP 22
== END 2024-04-15 10:17 | disposition home or self-care (01) ==
LOC: ED 08:07
DX: R94.5 Abnormal results of liver function studies (principal); T63.461A Toxic effect of venom of wasps, accidental (unintentional), initial encounter; R11.10 Vomiting, unspecified; R19.7 Diarrhea, unspecified; R53.1 Weakness; L29.8 Other pruritus; E78.5 Hyperlipidemia, unspecified; I10 Essential (primary) hypertension; Z79.899 Other long term (current) drug therapy; I49.9 Cardiac arrhythmia, unspecified
CPT/HCPCS: 0241U; 36000; 36415; 80053; 85025; 85610; 85730; 93005; 96360; 99284